=== PATIENT | male | born 1960 | race Caucasian/White ===

== ENCOUNTER 2017-11-01 14:00 | Emergency (ER) | payer MEDICARE, MEDICAID ==
[2017-11-01 19:48] LABS: ADD MAN DIFF? NO
[2017-11-01 19:51] LABS: WHITE BLOOD COUNT 4.3 10^3/ul (4.8-10.8)
[2017-11-01 19:51] LABS: ABNORMAL IP MESSAGE 1; HEMATOCRIT 25.6 % (42.0-52.0); HEMOGLOBIN 8.8 g/dl (14.0-18.0); MEAN CORPUSCULAR HEMOGLOBIN 38.4 pg (29.0-33.0); MEAN CORPUSCULAR HGB CONC 34.4 g/dl (32.0-37.0); MEAN CORPUSCULAR VOLUME 111.8 fl (82.0-101.0); MEAN PLATELET VOLUME 9.9 fl (7.4-10.4); PLATELET COUNT 72 10^3/UL (140-415); POSITIVE DIFF @See below; RED BLOOD COUNT 2.29 10^6/ul (4.70-6.10); RED CELL DISTRIBUTION WIDTH 15.1 % (11.5-14.5)
[2017-11-01 20:05] LABS: INR 1.81; PARTIAL THROMBOPLASTIN TIME 39.9 Sec (25.0-35.0); PROTIME 21.4 Sec (11.9-14.9); PT RATIO 1.7
[2017-11-01 20:13] LABS: URINE BLOOD (Dip) POC Negative (NEGATIVE); URINE GLUCOSE (Dip) POC Negative (NEGATIVE); URINE KETONES (Dip) POC Negative (NEGATIVE); URINE LEUKOCYTE EST (Dip) POC Negative (NEGATIVE); URINE NITRITE (Dip) POC Positive (NEGATIVE); URINE TOTAL PROTEIN POC Negative (NEGATIVE)
[2017-11-01 20:13] LABS: URINE PH (Dip) POC 5.5 (5.0-8.5)
[2017-11-01 20:43] LABS: ANION GAP 15 (8-16); BLOOD UREA NITROGEN 13 mg/dl (7-20); CALCIUM 8.4 mg/dl (8.4-10.2); CARBON DIOXIDE 20 mmol/L (21-31); CHLORIDE 103 mmol/L (97-110); CREATININE 0.77 mg/dl (0.61-1.24); GLUCOSE 59 mg/dl (70-220); POTASSIUM 5.5 mmol/L (3.5-5.1); SODIUM 132 mmol/L (135-144)
[2017-11-01 21:04] LABS: BAND NEUTROPHILS #M 0.2 10^3/ul (0.0-0.6); BAND NEUTROPHILS % (M) 5 % (0-4); LYMPHOCYTES #M 0.4 10^3/ul (0.8-2.9); LYMPHOCYTES % (M) 10 % (15-51); MONOCYTE #M 0.4 10^3/ul (0.3-0.9); MONOCYTES % (M) 10 % (0-11); PLATELET ESTIMATE DECREASED; SEG NEUT #M 3.2 10^3/ul (1.7-7.5); SEGMENTED NEUTROPHILS (M) % 75 % (39-77); SMUDGE%M 1 % (0-0)
[2017-11-01 21:05] LABS: ANISOCYTOSIS 1+ (0-0)
[2017-11-02] MEDS ORDERED: LIDOCAINE 1% (MPF) 5 ML VIAL (15:01)
== END 2017-11-01 21:52 | disposition home or self-care (01) ==
LOC: E/R 14:00
DX: K70.31 Alcoholic cirrhosis of liver with ascites (principal); D61.818 Other pancytopenia
CPT/HCPCS: 36415; 80048; 81003; 82962; 85025; 85610; 85730; 99283

== ENCOUNTER 2017-11-02 08:33 | Emergency (ER) | payer MEDICARE, MEDICAID ==
[2017-11-02] MEDS: ALBUMIN HUMAN 5% 250 ML IV (09:44)
== END 2017-11-02 14:26 | disposition home or self-care (01) ==
LOC: E/R 08:33
DX: K70.31 Alcoholic cirrhosis of liver with ascites (principal); R40.2252 Coma scale, best verbal response, oriented, at arrival to emergency department; R40.2142 Coma scale, eyes open, spontaneous, at arrival to emergency department; R40.2362 Coma scale, best motor response, obeys commands, at arrival to emergency department
CPT/HCPCS: 96374; 99285-25

== ENCOUNTER 2017-11-08 11:27 | Emergency (ER) | payer MEDICARE, MEDICAID ==
[2017-11-08 13:09] LABS: ADD MAN DIFF? NO
[2017-11-08 13:13] LABS: ABNORMAL IP MESSAGE 1; BASOPHILS % 0.8 % (0.0-2.0); EOSINOPHILS # 0.1 10^3/ul (0.0-0.5); EOSINOPHILS % 2.4 % (0.0-7.0); HEMATOCRIT 25.6 % (42.0-52.0); HEMOGLOBIN 9.1 g/dl (14.0-18.0); LYMPHOCYTES # 0.4 10^3/ul (0.8-2.9); LYMPHOCYTES % 10.8 % (15.0-51.0); MEAN CORPUSCULAR HEMOGLOBIN 38.2 pg (29.0-33.0); MEAN CORPUSCULAR HGB CONC 35.5 g/dl (32.0-37.0); MEAN CORPUSCULAR VOLUME 107.6 fl (82.0-101.0); MEAN PLATELET VOLUME 10.4 fl (7.4-10.4); MONOCYTE # 0.5 10^3/ul (0.3-0.9); MONOCYTES % 13.8 % (0.0-11.0); NEUTROPHIL # 2.6 10^3/ul (1.6-7.5); NEUTROPHILS % 71.4 % (39.0-77.0); PLATELET COUNT 79 10^3/UL (140-415); POSITIVE DIFF @See below; RED BLOOD COUNT 2.38 10^6/ul (4.70-6.10); RED CELL DISTRIBUTION WIDTH 14.4 % (11.5-14.5)
[2017-11-08 13:13] LABS: WHITE BLOOD COUNT 3.7 10^3/ul (4.8-10.8)
[2017-11-08 13:33] LABS: INR 1.83; PROTIME 21.6 Sec (11.9-14.9); PT RATIO 1.7
[2017-11-08 13:34] LABS: PARTIAL THROMBOPLASTIN TIME 41.5 Sec (25.0-35.0)
[2017-11-08 13:36] LABS: ALANINE AMINOTRANSFERASE 50 IU/L (13-69); ALBUMIN 2.9 g/dl (3.3-4.9); ALBUMIN/GLOBULIN RATIO 0.67; ALKALINE PHOSPHATASE 149 IU/L (42-121); ANION GAP 14 (8-16); ASPARTATE AMINO TRANSFERASE 67 IU/L (15-46); BILIRUBIN,INDIRECT 3.8 mg/dl (0-1.1); BILIRUBIN,TOTAL 4.2 mg/dl (0.2-1.3); BLOOD UREA NITROGEN 17 mg/dl (7-20); CARBON DIOXIDE 19 mmol/L (21-31); CHLORIDE 99 mmol/L (97-110); CREATININE 0.84 mg/dl (0.61-1.24); GLUCOSE 99 mg/dl (70-220); MAGNESIUM 1.9 mg/dl (1.7-2.5); POTASSIUM 5.2 mmol/L (3.5-5.1); SODIUM 127 mmol/L (135-144); TOTAL PROTEIN 7.2 g/dl (6.1-8.1)
[2017-11-08] MEDS: ALBUMIN HUMAN 25% 100 ML IV (16:02)
== END 2017-11-08 16:54 | disposition home or self-care (01) ==
LOC: E/R 11:27
DX: R18.8 Other ascites (principal); E87.1 Hypo-osmolality and hyponatremia; E87.5 Hyperkalemia; R10.9 Unspecified abdominal pain
CPT/HCPCS: 80053; 83735; 85025; 85610; 85730; 96374; 99284-25